=== PATIENT | female | born 1995 | race Caucasian/White ===

== ENCOUNTER 2018-03-02 00:33 | Emergency (ER) | payer SELFPAY ==
[~2018-03-02] VITALS: Ht 172.7 cm; Wt 64.0 kg
[2018-03-02 01:47] LABS: CHLORIDE 107 mEq/L (98-107)
[2018-03-02 02:04] LABS: ETHANOL BLOOD 343 mg/dL
[2018-03-02 02:43] VITALS: BP 118/76
== END 2018-03-02 02:44 | disposition home or self-care (01) ==
LOC: ER 00:33
DX: F10.129 Alcohol abuse with intoxication, unspecified (principal); Y90.8 Blood alcohol level of 240 mg/100 ml or more
CPT/HCPCS: 36415; 80053; 99284; G0482